=== PATIENT | male | born 1955 | race Caucasian/White ===

== ENCOUNTER 2020-10-19 16:49 | Inpatient (IN) ==
[2020-10-19] MEDS ORDERED: Naloxone 0.4 MG/ML INJ IVP PRN (20:36)
[2020-10-19] MEDS ORDERED: *HR* Heparin 5,000 UNIT/ML VIAL IVP ONE (22:10)
[2020-10-19] MEDS ORDERED: *HR* Heparin 5,000 UNIT/ML VIAL IVP PRN ×2 (22:10)
[2020-10-19] MEDS ORDERED: Heparin 25,000UNIT/250ML 1/2NS 25,000 UNIT/250 ML IV.SOLN IVC SCH (22:15)
[2020-10-19 22:27] LABS: Hemoglobin 13.3 g/dL (12.9-16.9); Mean Corpuscular HGB Conc 33.3 g/dL (31.6-35.5); Mean Corpuscular Hemoglobin 30.9 pg (28.0-33.3); Mean Corpuscular Volume 92.8 fL (83.0-100.0); Mean Platelet Volume 9.9 fL (9.4-12.4); Platelet Count 166 K/mcL (140-400); Red Blood Count 4.31 M/mcL (4.19-5.50); Red Cell Distribution Width 11.8 % (11.5-14.5); White Blood Count 10.8 K/mcL (4.3-11.1)
[2020-10-19 23:09] LABS: Heparin anti-factor XA UFH < 0.04 IU/mL (0.30-0.70); INR 1.1; Prothrombin Time 13.2 Seconds (9.4-12.1)
[2020-10-20] MEDS ORDERED: Perflutren Lipid Microsphere 1.3 ML in 0.9 % Sodium Chloride 8.7 ML IVP PRN (03:13)
[2020-10-20 06:07] LABS: Basophils # 0.1 K/mcL (0.0-0.2); Basophils % 0.4 %; Eosinophils # 0.1 K/mcL (0.0-0.6); Eosinophils % 0.6 %; Hematocrit 40.5 % (37.5-50.1); Hemoglobin 13.6 g/dL (12.9-16.9); Immature Granulocytes % 0.4 % (0-4); Lymphocytes # 2.2 K/mcL (0.6-4.6); Lymphocytes % 15.7 %; Mean Corpuscular HGB Conc 33.6 g/dL (31.6-35.5); Mean Corpuscular Hemoglobin 30.6 pg (28.0-33.3); Mean Corpuscular Volume 91.2 fL (83.0-100.0); Mean Platelet Volume 9.8 fL (9.4-12.4); Monocytes # 1.1 K/mcL (0.0-1.3); Monocytes % 7.8 %; Neutrophils # 10.6 K/mcL (1.6-8.9); Platelet Count 167 K/mcL (140-400); Red Blood Count 4.44 M/mcL (4.19-5.50); Red Cell Distribution Width 11.7 % (11.5-14.5); Segmented Neutrophils % 75.1 %; White Blood Count 14.1 K/mcL (4.3-11.1)
[2020-10-20 06:14] LABS: INR 1.2; Prothrombin Time 13.4 Seconds (9.4-12.1)
[2020-10-20 06:22] LABS: Activated Partial Thrombo Time 72.8 Seconds (26.0-36.0)
[2020-10-20 06:28] LABS: Albumin 3.7 g/dL (3.5-5.7); Albumin/Globulin Ratio 2.1 (1.1-2.2); Bilirubin,Direct 0.2 mg/dL (0.0-0.2); Bilirubin,Indirect 0.7 mg/dL (0.0-1.0); Bilirubin,Total 0.9 mg/dL (0.3-1.0); Globulin 1.8 g/dL (2.4-3.5); Total Protein 5.5 g/dL (6.4-8.9)
[2020-10-20 06:29] LABS: BUN/Creatinine Ratio 13 (6-26); Blood Urea Nitrogen 13 mg/dL (8-23); Calcium 8.8 mg/dL (8.6-10.3); Carbon Dioxide 23 mEq/L (23-29); Chloride 108 mEq/L (98-107); Chol/HDL Ratio 2.9 (0-4.9); Cholesterol 112 mg/dL (< 200); Glucose 105 mg/dL (70-105); HDL Cholesterol 39 mg/dL (40-59); LDL Cholesterol,Calculated 60 mg/dL (< 100); Magnesium 1.8 mg/dL (1.6-2.6); Osmolality,Calculated 286 (280-300); Phosphorous 2.4 mg/dL (2.7-4.5); Potassium 3.8 mEq/L (3.5-5.1); Sodium 138 mEq/L (136-145); Triglycerides 67 mg/dL (< 150); eGFR For African Americans > 60 (> 60); eGFR For Non-African Americans > 60 (> 60)
[2020-10-20] MEDS ORDERED: *HR* Midazolam HCl 2 MG/2 ML VIAL ONE (08:51)
[2020-10-20] MEDS ORDERED: *HR* FentaNYL (PF) 100 MCG/2 ML VIAL ONE (08:52)
[2020-10-20] MEDS ORDERED: 0.9 % Sodium Chloride 1,000 ML ONE ×2 (08:56→09:46)
[2020-10-20] MEDS ORDERED: ISOVUE-370 200 ML INFUS..BTL ONE (09:46)
[2020-10-20] MEDS ORDERED: *HR* Heparin 10,000 UNIT/10 ML VIAL ONE (09:46)
[2020-10-20] MEDS ORDERED: Heparin 1,000 UNITS/500 mL 500 ML ONE (09:46)
[2020-10-20] MEDS ORDERED: Nitroglycerin 1,000 MCG/5 ML VIAL IV ONE (09:46)
[2020-10-20] MEDS ORDERED: Aspirin 81 MG TAB.CHEW PO SCH (10:15)
[2020-10-20] MEDS ORDERED: 0.9 % Sodium Chloride 1,000 ML IVC SCH (10:15)
[2020-10-20] MEDS: Nitroglycerin 1 INCH/GM PACKET TP SCH ×2 (14:12→16:30)
[2020-10-20] MEDS: Chlorhexidine Rinse 15 ML MOUTHWASH MM SCH (20:16)
[2020-10-20 20:46] LABS: Adenovirus Not Detected (Not Detect); Bordetella Pertussis Not Detected (Not Detect); Chlamydophila pneumoniae Not Detected (Not Detect); Coronavirus 229E Not Detected (Not Detect); Coronavirus HKU1 Not Detected (Not Detect); Coronavirus NL63 Not Detected (Not Detect); Coronavirus OC43 Not Detected (Not Detect); Human Metapneumovirus Not Detected (Not Detect); Human Rhinovirus/Enterovirus Not Detected (Not Detect); Influenza A Subtype 2009 H1 Not Detected (Not Detect); Influenza B Not Detected (Not Detect); Mycoplasma pneumoniae Not Detected (Not Detect); Parainfluenza Virus 1 Not Detected (Not Detect); Parainfluenza Virus 2 Not Detected (Not Detect); Parainfluenza Virus 3 Not Detected (Not Detect); Parainfluenza Virus 4 Not Detected (Not Detect); Respiratory Syncytial Virus Not Detected (Not Detect); SARS-CoV-2 Not Detected (Not Detect)
[2020-10-21 04:25] LABS: Hematocrit 41.4 % (37.5-50.1); Hemoglobin 13.8 g/dL (12.9-16.9); Mean Corpuscular HGB Conc 33.3 g/dL (31.6-35.5); Mean Corpuscular Hemoglobin 31.1 pg (28.0-33.3); Mean Corpuscular Volume 93.2 fL (83.0-100.0); Mean Platelet Volume 9.8 fL (9.4-12.4); Platelet Count 150 K/mcL (140-400); Red Blood Count 4.44 M/mcL (4.19-5.50); Red Cell Distribution Width 11.7 % (11.5-14.5); White Blood Count 8.5 K/mcL (4.3-11.1)
[2020-10-21 04:49] LABS: Alanine Aminotransferase 22 Units/L (7-52); Albumin 3.8 g/dL (3.5-5.7); Alkaline Phosphatase 55 Units/L (34-104); Amylase 90 Units/L (29-103); Aspartate Amino Transferase 34 Units/L (13-39); BUN/Creatinine Ratio 15 (6-26); Bilirubin,Total 0.9 mg/dL (0.3-1.0); Blood Urea Nitrogen 16 mg/dL (8-23); Calcium 8.8 mg/dL (8.6-10.3); Carbon Dioxide 26 mEq/L (23-29); Chloride 106 mEq/L (98-107); Globulin 1.9 g/dL (2.4-3.5); Glucose 102 mg/dL (70-105); Lipase 202 Units/L (11-82); Osmolality,Calculated 285 (280-300); Potassium 4.2 mEq/L (3.5-5.1); Sodium 137 mEq/L (136-145); Total Protein 5.7 g/dL (6.4-8.9); eGFR For African Americans > 60 (> 60); eGFR For Non-African Americans > 60 (> 60)
[2020-10-21] MEDS: Chlorhexidine Rinse 15 ML MOUTHWASH MM SCH ×2 (05:59→21:04)
[2020-10-21] MEDS ORDERED: Aspirin 81 MG TAB.CHEW PO ONE (06:00)
[2020-10-21] MEDS ORDERED: NiCARdipine 2.5 MG/10 ML Syringe IVPB ONE (06:32)
[2020-10-21] MEDS ORDERED: *HR* Midazolam HCl 5 MG/5 ML VIAL IVP ONE (06:36)
[2020-10-21] MEDS ORDERED: *HR* FentaNYL (PF) 1,000 MCG/20 ML VIAL ONE (06:36)
[2020-10-21] MEDS ORDERED: *HR* PHENYLEPHRINE 1,000 MCG/10 ML SYRINGE IVP ONE (06:39)
[2020-10-21] MEDS ORDERED: *HR* Rocuronium Bromide 50 MG/5 ML VIAL ONE (06:39)
[2020-10-21] MEDS ORDERED: *HR* Etomidate 20 MG/10 ML AMPUL IVP ONE (06:41)
[2020-10-21] MEDS ORDERED: EPINEPHrine 1 MG/ML VIAL ONE (06:41)
[2020-10-21] MEDS ORDERED: Famotidine 20 MG/2 ML VIAL ONE (06:41)
[2020-10-21] MEDS ORDERED: Tranexamic Acid 1,000 MG/10 ML VIAL ONE ×2 (06:43→09:10)
[2020-10-21] MEDS ORDERED: Protamine Sulfate 250 MG/25 ML VIAL IVP ONE (06:43)
[2020-10-21] MEDS ORDERED: Calcium Gluconate 1,000 MG/10 ML VIAL ONE (06:43)
[2020-10-21] MEDS ORDERED: CeFAZolin Syr 2,000MG/20 ML 2,000 MG/20 ML SYRINGE IVPB ONE (07:00)
[2020-10-21] MEDS ORDERED: Insulin Human Regular 100 UNIT in 0.9 % Sodium Chloride 100 ML IV PRN (07:45)
[2020-10-21] MEDS ORDERED: Heparin 15,000 UNIT in 0.9 % Sodium Chloride 500 ML IV ONE (07:45)
[2020-10-21] MEDS ORDERED: Norepinephrine 4 MG in 0.9 % Sodium Chloride 250 ML IVC PRN (07:45)
[2020-10-21] MEDS ORDERED: Dextrose 50 % in Water (Vial) 30 ML, Sodium Bicarbonate 20 MEQ, Potassium Chloride 15 M... TH ONE (07:45)
[2020-10-21] MEDS ORDERED: Dextrose 50 % in Water (Vial) 30 ML, Sodium Bicarbonate 20 MEQ, Lidocaine 1% 5 ML, Insu... TH ONE ×3 (07:45)
[2020-10-21 08:06] LABS: Estimated Average Glucose 117 mg/dl; Hemoglobin A1C 5.7 %
[2020-10-21] MEDS ORDERED: Lidocaine Jelly 6ml 1 APPL/6 ML JEL.PF.APP ONE (08:14)
[2020-10-21 08:29] LABS: ABG Base Excess 1 mEq/L (-2 to 3); ABG Chloride 103 mEq/L (98-107); ABG Glucose 109 mg/dL (60-95); ABG HCO3 27 mEq/L (21-27); ABG Ionized Calcium 1.14 mmol/L (1.15-1.35); ABG Oxygen Saturation 100 % (95-98); ABG PCO2 51 mmHg (35-45); ABG PH 7.34 pH Units (7.32-7.45); ABG PO2 326 mmHg (85-104); ABG TCO2 29 mEq/L (20-26)
[2020-10-21 09:30] LABS: ABG Base Excess 0 mEq/L (-2 to 3); ABG Chloride 102 mEq/L (98-107); ABG Glucose 128 mg/dL (60-95); ABG HCO3 25 mEq/L (21-27); ABG Ionized Calcium 1.19 mmol/L (1.15-1.35); ABG Oxygen Saturation 100 % (95-98); ABG PCO2 41 mmHg (35-45); ABG PO2 252 mmHg (85-104); ABG TCO2 26 mEq/L (20-26)
[2020-10-21 09:49] LABS: ABG Base Excess 0 mEq/L (-2 to 3); ABG Chloride 97 mEq/L (98-107); ABG Glucose 159 mg/dL (60-95); ABG HCO3 24 mEq/L (21-27); ABG Ionized Calcium 0.89 mmol/L (1.15-1.35); ABG PCO2 36 mmHg (35-45); ABG PH 7.44 pH Units (7.32-7.45); ABG PO2 > 630 mmHg (85-104); ABG TCO2 26 mEq/L (20-26)
[2020-10-21 10:08] LABS: ABG Base Excess 0 mEq/L (-2 to 3); ABG Chloride 99 mEq/L (98-107); ABG Glucose 124 mg/dL (60-95); ABG HCO3 24 mEq/L (21-27); ABG Ionized Calcium 1.01 mmol/L (1.15-1.35); ABG Oxygen Saturation 100 % (95-98); ABG PCO2 37 mmHg (35-45); ABG PH 7.43 pH Units (7.32-7.45); ABG PO2 615 mmHg (85-104); ABG TCO2 25 mEq/L (20-26)
[2020-10-21] MEDS ORDERED: *HR* Phenylephrine 10 MG/ML VIAL IVC ONE (10:11)
[2020-10-21] MEDS ORDERED: *HR* Magnesium Sulfate 2 GM/50 ML PIGGYBACK IVPB ONE (10:11)
[2020-10-21] MEDS ORDERED: Tranexamic Acid 1,000 MG/10 ML VIAL IR ONE (10:11)
[2020-10-21] MEDS ORDERED: *HR* Heparin 10,000 UNIT/10 ML VIAL IR ONE (10:11)
[2020-10-21] MEDS ORDERED: Albumin Human 25% 25 GM/100 ML IV.SOLN IVPB ONE (10:11)
[2020-10-21] MEDS ORDERED: Lidocaine 2% Syringe 100 MG/5 ML IVP ONE (10:11)
[2020-10-21] MEDS ORDERED: Mannitol 25% vial 12.5 GM/50 ML VIAL IVPB ONE (10:11)
[2020-10-21] MEDS ORDERED: Protamine Sulfate 50 MG/5 ML VIAL IVP ONE (10:37)
[2020-10-21 10:39] LABS: ABG Base Excess 0 mEq/L (-2 to 3); ABG Chloride 100 mEq/L (98-107); ABG Glucose 86 mg/dL (60-95); ABG HCO3 25 mEq/L (21-27); ABG Ionized Calcium 1.61 mmol/L (1.15-1.35); ABG Oxygen Saturation 100 % (95-98); ABG PCO2 40 mmHg (35-45); ABG PO2 163 mmHg (85-104); ABG TCO2 26 mEq/L (20-26)
[2020-10-21] MEDS ORDERED: Potassium Chloride 40 MEQ/200 ML BAG IVPB PRN (10:54)
[2020-10-21] MEDS ORDERED: *HR* Dextrose 50 % in Water (Vial) 50 ML VIAL IVP PRN (10:54)
[2020-10-21] MEDS ORDERED: Insulin Regular, Human 100 UNIT/ML IV PRN (10:54)
[2020-10-21] MEDS ORDERED: Acetaminophen 650 MG RECTAL SUPP RC PRN (10:56)
[2020-10-21] MEDS ORDERED: Ondansetron 4 MG/2 ML VIAL IVP PRN (10:56)
[2020-10-21] MEDS ORDERED: Acetaminophen 325 MG TABLET PO PRN (10:56)
[2020-10-21] MEDS ORDERED: Sennosides 8.6 MG TABLET PO PRN (10:58)
[2020-10-21] MEDS ORDERED: Calcium Gluconate 1gm/50mL 1 GM/50 ML BAG IVPB PRN (10:58)
[2020-10-21] MEDS ORDERED: *HR* Dextrose 50 % in Water (Vial) 50 ML VIAL ONE (11:36)
[2020-10-21 11:40] LABS: ABG Base Excess 1 mEq/L (-2 to 3); ABG HCO3 26 mEq/L (21-27); ABG Oxygen Saturation 100 % (95-98); ABG PCO2 45 mmHg (35-45); ABG PH 7.37 pH Units (7.32-7.45); ABG PO2 189 mmHg (85-104); ABG TCO2 28 mEq/L (20-26); Blood Gas Modality AF; Blood Gas VT 600 cc
[2020-10-21] MEDS: niCARdipine 20 MG/200 ML MLS IVC SCH ×5 (11:45→23:09)
[2020-10-21] MEDS: 0.9 % Sodium Chloride w KCl 20 MEQ/1,000 ML MLS IVC SCH (11:55)
[2020-10-21] MEDS: Metoclopramide 10 MG/2 ML VIAL IVP SCH ×3 (11:55→23:09)
[2020-10-21 11:56] LABS: Basophils % 0.4 %; Immature Granulocytes % 0.4 % (0-4)
[2020-10-21 11:58] LABS: Eosinophils # 0.1 K/mcL (0.0-0.6); Eosinophils % 1.6 %; Hematocrit 32.5 % (37.5-50.1); Hemoglobin 10.8 g/dL (12.9-16.9); Immature Platelets 2.6 % (1.1-6.1); Lymphocytes # 1.2 K/mcL (0.6-4.6); Lymphocytes % 16.9 %; Mean Corpuscular HGB Conc 33.2 g/dL (31.6-35.5); Mean Corpuscular Hemoglobin 30.7 pg (28.0-33.3); Mean Corpuscular Volume 92.3 fL (83.0-100.0); Mean Platelet Volume 9.6 fL (9.4-12.4); Monocytes # 0.1 K/mcL (0.0-1.3); Neutrophils # 5.8 K/mcL (1.6-8.9); Platelet Count 75 K/mcL (140-400); Red Blood Count 3.52 M/mcL (4.19-5.50); Red Cell Distribution Width 11.6 % (11.5-14.5); Segmented Neutrophils % 79.7 %; White Blood Count 7.3 K/mcL (4.3-11.1)
[2020-10-21 12:03] LABS: INR 1.5; Prothrombin Time 17.6 Seconds (9.4-12.1)
[2020-10-21 12:06] LABS: Activated Partial Thrombo Time 32.3 Seconds (26.0-36.0)
[2020-10-21] MEDS: Pantoprazole 40 MG VIAL IVP SCH (12:08)
[2020-10-21 12:11] LABS: BUN/Creatinine Ratio 14 (6-26); Blood Urea Nitrogen 14 mg/dL (8-23); Carbon Dioxide 28 mEq/L (23-29); Chloride 108 mEq/L (98-107); Glucose 63 mg/dL (70-105); Magnesium 2.7 mg/dL (1.6-2.6); Osmolality,Calculated 285 (280-300); Potassium 3.8 mEq/L (3.5-5.1); Sodium 138 mEq/L (136-145); eGFR For African Americans > 60 (> 60); eGFR For Non-African Americans > 60 (> 60)
[2020-10-21] MEDS: Norepinephrine 4 MG/254 ML IV.SOLN IVC SCH ×5 (12:30→21:52)
[2020-10-21] MEDS: Albumin Human 5% 12.5 GM/250 ML IV.SOLN IVPB PRN ×4 (12:30→15:07)
[2020-10-21] MEDS: CeFAZolin 2 GM/120 ML BAG IVPB SCH ×2 (13:02→21:04)
[2020-10-21] MEDS: *HR* FentaNYL (PF) 100 MCG/2 ML VIAL IVP PRN ×3 (14:30→21:51)
[2020-10-21 15:20] LABS: Hematocrit 26.6 % (37.5-50.1)
[2020-10-21 15:21] LABS: Hemoglobin 8.7 g/dL (12.9-16.9)
[2020-10-21 16:00] LABS: ABG Base Excess -3 mEq/L (-2 to 3); ABG HCO3 22 mEq/L (21-27); ABG Oxygen Saturation 98 % (95-98); ABG PCO2 35 mmHg (35-45); ABG PO2 97 mmHg (85-104); ABG TCO2 23 mEq/L (20-26); Blood Gas Modality AF; Blood Gas VT 600 cc
[2020-10-21] MEDS ORDERED: CeFAZolin 2 GM/120 ML BAG IVPB SCH (16:00)
[2020-10-21] MEDS ORDERED: 0.9 % Sodium Chloride 250 ML ONE ×3 (16:05→17:39)
[2020-10-21] MEDS: Vasopressin 40 UNIT in D5% in Water 100 ML IVC SCH (17:03)
[2020-10-21] MEDS: Insulin Human Regular 100 UNIT in 0.9 % Sodium Chloride 100 ML IVC SCH (19:26)
[2020-10-21] MEDS: Dexmedetomidine HCl 400 MCG/100 ML MLS IVC SCH (19:47)
[2020-10-21 20:14] LABS: ABG Base Excess 0 mEq/L (-2 to 3); ABG HCO3 24 mEq/L (21-27); ABG Oxygen Saturation 99 % (95-98); ABG PCO2 38 mmHg (35-45); ABG PH 7.42 pH Units (7.32-7.45); ABG PO2 132 mmHg (85-104); ABG TCO2 26 mEq/L (20-26); Blood Gas Modality AF; Blood Gas VT 600 cc
[2020-10-21] MEDS: *HR* OxyCODONE/APAP 5/325 TABLET PO PRN (23:08)
[2020-10-22 00:05] LABS: ABG Base Excess -1 mEq/L (-2 to 3); ABG HCO3 24 mEq/L (21-27); ABG Oxygen Saturation 98 % (95-98); ABG PCO2 36 mmHg (35-45); ABG PH 7.43 pH Units (7.32-7.45); ABG PO2 106 mmHg (85-104); ABG TCO2 25 mEq/L (20-26); Blood Gas Modality AF; Blood Gas VT 600 cc
[2020-10-22] MEDS: *HR* FentaNYL (PF) 100 MCG/2 ML VIAL IVP PRN ×2 (01:05→03:32)
[2020-10-22] MEDS: Norepinephrine 4 MG/254 ML IV.SOLN IVC SCH ×2 (02:14→11:54)
[2020-10-22] MEDS: niCARdipine 20 MG/200 ML MLS IVC SCH ×5 (02:51→21:06)
[2020-10-22 04:09] LABS: ABG Base Excess -1 mEq/L (-2 to 3); ABG HCO3 24 mEq/L (21-27); ABG Oxygen Saturation 98 % (95-98); ABG PCO2 40 mmHg (35-45); ABG PH 7.39 pH Units (7.32-7.45); ABG PO2 103 mmHg (85-104); ABG TCO2 25 mEq/L (20-26); Blood Gas Modality AF; Blood Gas VT 600 cc
[2020-10-22 04:13] LABS: Basophils % 0.2 %; Eosinophils % 0.1 %; Hematocrit 25.5 % (37.5-50.1); Hemoglobin 8.6 g/dL (12.9-16.9); Immature Granulocytes % 0.4 % (0-4); Immature Platelets 5.1 % (1.1-6.1); Lymphocytes # 1.1 K/mcL (0.6-4.6); Lymphocytes % 8.5 %; Mean Corpuscular HGB Conc 33.7 g/dL (31.6-35.5); Mean Corpuscular Hemoglobin 30.1 pg (28.0-33.3); Mean Corpuscular Volume 89.2 fL (83.0-100.0); Mean Platelet Volume 10.3 fL (9.4-12.4); Monocytes # 1.7 K/mcL (0.0-1.3); Monocytes % 12.8 %; Neutrophils # 10.1 K/mcL (1.6-8.9); Red Blood Count 2.86 M/mcL (4.19-5.50); Red Cell Distribution Width 14.4 % (11.5-14.5)
[2020-10-22 04:14] LABS: Platelet Count 69 K/mcL (140-400)
[2020-10-22 04:18] LABS: INR 1.4; Prothrombin Time 15.8 Seconds (9.4-12.1)
[2020-10-22 04:20] LABS: Activated Partial Thrombo Time 28.7 Seconds (26.0-36.0)
[2020-10-22 04:26] LABS: Platelet Estimate Decreased (Normal)
[2020-10-22 04:31] LABS: Albumin 3.4 g/dL (3.5-5.7); Albumin/Globulin Ratio 2.6 (1.1-2.2); Bilirubin,Total 1.5 mg/dL (0.3-1.0); Calcium 7.8 mg/dL (8.6-10.3); Globulin 1.3 g/dL (2.4-3.5); Potassium 4.6 mEq/L (3.5-5.1); Total Protein 4.7 g/dL (6.4-8.9)
[2020-10-22] MEDS: *HR* OxyCODONE/APAP 5/325 TABLET PO PRN ×5 (05:07→21:04)
[2020-10-22] MEDS: Metoclopramide 10 MG/2 ML VIAL IVP SCH ×4 (05:08→23:37)
[2020-10-22] MEDS ORDERED: 0.9 % Sodium Chloride 1,000 ML ONE (06:44)
[2020-10-22] MEDS ORDERED: 0.9 % Sodium Chloride 250 ML ONE (06:45)
[2020-10-22] MEDS: 0.9 % Sodium Chloride w KCl 20 MEQ/1,000 ML MLS IVC SCH (06:50)
[2020-10-22] MEDS: Vasopressin 40 UNIT in D5% in Water 100 ML IVC SCH (07:21)
[2020-10-22] MEDS: 0.9 % Sodium Chloride 1,000 ML IVC SCH (07:48)
[2020-10-22] MEDS: Chlorhexidine Rinse 15 ML MOUTHWASH MM SCH ×2 (08:19→21:05)
[2020-10-22] MEDS: Furosemide 20 MG/2 ML VIAL IVP SCH ×2 (08:19→21:05)
[2020-10-22] MEDS: Aspirin Enteric Coated 81 MG Tablet PO SCH (08:19)
[2020-10-22] MEDS: Pantoprazole 40 MG VIAL IVP SCH (08:19)
[2020-10-22 08:31] LABS: ABG Base Excess -1 mEq/L (-2 to 3); ABG HCO3 25 mEq/L (21-27); ABG Oxygen Saturation 97 % (95-98); ABG PCO2 43 mmHg (35-45); ABG PH 7.37 pH Units (7.32-7.45); ABG PO2 90 mmHg (85-104); ABG TCO2 26 mEq/L (20-26); Blood Gas Modality CPAP/PS
[2020-10-22] MEDS: Insulin Human Regular 100 UNIT in 0.9 % Sodium Chloride 100 ML IVC SCH (10:54)
[2020-10-22] MEDS: Dexmedetomidine HCl 400 MCG/100 ML MLS IVC SCH (14:22)
[2020-10-22] MEDS: Insulin LISPRO 300 UNITS/3 ML VIAL SUBQ SCH ×2 (15:31→21:05)
[2020-10-22] MEDS: Ipratropium 1 PUFF INHALER IH SCH (20:02)
[2020-10-23] MEDS: Ipratropium 1 PUFF INHALER IH SCH ×7 (00:03→23:20)
[2020-10-23] MEDS: 0.9 % Sodium Chloride 1,000 ML IVC SCH ×2 (03:59→22:54)
[2020-10-23] MEDS: niCARdipine 20 MG/200 ML MLS IVC SCH ×6 (05:07→22:53)
[2020-10-23] MEDS: *HR* OxyCODONE/APAP 5/325 TABLET PO PRN ×2 (05:07→17:47)
[2020-10-23] MEDS: Metoclopramide 10 MG/2 ML VIAL IVP SCH ×3 (05:07→17:48)
[2020-10-23 05:23] LABS: Hematocrit 28.6 % (37.5-50.1); Hemoglobin 9.5 g/dL (12.9-16.9); Mean Corpuscular HGB Conc 33.2 g/dL (31.6-35.5); Mean Corpuscular Hemoglobin 29.8 pg (28.0-33.3); Mean Corpuscular Volume 89.7 fL (83.0-100.0); Mean Platelet Volume 11.3 fL (9.4-12.4); Red Blood Count 3.19 M/mcL (4.19-5.50); Red Cell Distribution Width 14.6 % (11.5-14.5); White Blood Count 12.7 K/mcL (4.3-11.1)
[2020-10-23 05:24] LABS: Platelet Count 69 K/mcL (140-400)
[2020-10-23 05:40] LABS: Alanine Aminotransferase 13 Units/L (7-52); Albumin 3.4 g/dL (3.5-5.7); Albumin/Globulin Ratio 1.8 (1.1-2.2); Alkaline Phosphatase 38 Units/L (34-104); Aspartate Amino Transferase 35 Units/L (13-39); BUN/Creatinine Ratio 17 (6-26); Bilirubin,Total 1.7 mg/dL (0.3-1.0); Blood Urea Nitrogen 19 mg/dL (8-23); Calcium 8.2 mg/dL (8.6-10.3); Carbon Dioxide 27 mEq/L (23-29); Chloride 106 mEq/L (98-107); Globulin 1.9 g/dL (2.4-3.5); Glucose 134 mg/dL (70-105); Osmolality,Calculated 288 (280-300); Potassium 3.7 mEq/L (3.5-5.1); Sodium 137 mEq/L (136-145); Total Protein 5.3 g/dL (6.4-8.9); eGFR For African Americans > 60 (> 60); eGFR For Non-African Americans > 60 (> 60)
[2020-10-23 05:41] LABS: Albumin 3.4 g/dL (3.5-5.7); Albumin/Globulin Ratio 1.8 (1.1-2.2); Bilirubin,Direct 0.6 mg/dL (0.0-0.2); Bilirubin,Indirect 1.1 mg/dL (0.0-1.0); Bilirubin,Total 1.7 mg/dL (0.3-1.0); Globulin 1.9 g/dL (2.4-3.5); Total Protein 5.3 g/dL (6.4-8.9)
[2020-10-23 05:42] LABS: Basophils % 0.2 %; Eosinophils % 0.2 %; Lymphocytes # 0.6 K/mcL (0.6-4.6); Lymphocytes % 4.5 %; Segmented Neutrophils % 86.4 %
[2020-10-23 05:44] LABS: Immature Granulocytes % 0.7 % (0-4); Immature Platelets 7.3 % (1.1-6.1)
[2020-10-23] MEDS: Insulin LISPRO 300 UNITS/3 ML VIAL SUBQ SCH ×4 (08:38→20:07)
[2020-10-23] MEDS: Aspirin Enteric Coated 81 MG Tablet PO SCH (08:38)
[2020-10-23] MEDS: Chlorhexidine Rinse 15 ML MOUTHWASH MM SCH ×2 (08:38→20:01)
[2020-10-23] MEDS: Pantoprazole 40 MG VIAL IVP SCH (08:39)
[2020-10-23] MEDS: Furosemide 20 MG/2 ML VIAL IVP SCH ×2 (08:39→20:02)
[2020-10-23] MEDS: Dexmedetomidine HCl 400 MCG/100 ML MLS IVC SCH (19:56)
[2020-10-23] MEDS: Vasopressin 40 UNIT in D5% in Water 100 ML IVC SCH (19:57)
[2020-10-24] MEDS: niCARdipine 20 MG/200 ML MLS IVC SCH ×7 (00:02→23:05)
[2020-10-24] MEDS: Metoclopramide 10 MG/2 ML VIAL IVP SCH ×3 (00:02→11:32)
[2020-10-24] MEDS: Dexmedetomidine HCl 400 MCG/100 ML MLS IVC SCH ×2 (00:47→23:05)
[2020-10-24] MEDS: Ipratropium 1 PUFF INHALER IH SCH ×6 (03:30→23:39)
[2020-10-24 04:39] LABS: Basophils % 0.1 %; Eosinophils % 0.3 %; Mean Platelet Volume 11.2 fL (9.4-12.4)
[2020-10-24 04:41] LABS: Eosinophils # 0.1 K/mcL (0.0-0.6); Hematocrit 29.8 % (37.5-50.1); Hemoglobin 9.9 g/dL (12.9-16.9); Immature Granulocytes % 1.1 % (0-4); Immature Platelets 5.9 % (1.1-6.1); Lymphocytes # 0.9 K/mcL (0.6-4.6); Lymphocytes % 5.7 %; Mean Corpuscular HGB Conc 33.2 g/dL (31.6-35.5); Mean Corpuscular Hemoglobin 29.6 pg (28.0-33.3); Monocytes # 1.2 K/mcL (0.0-1.3); Monocytes % 7.6 %; Red Blood Count 3.35 M/mcL (4.19-5.50); Segmented Neutrophils % 85.2 %; White Blood Count 15.9 K/mcL (4.3-11.1)
[2020-10-24 04:42] LABS: Neutrophils # 13.6 K/mcL (1.6-8.9); Platelet Count 97 K/mcL (140-400)
[2020-10-24 04:56] LABS: Alanine Aminotransferase 19 Units/L (7-52); Albumin 3.3 g/dL (3.5-5.7); Albumin/Globulin Ratio 1.5 (1.1-2.2); Alkaline Phosphatase 46 Units/L (34-104); Aspartate Amino Transferase 34 Units/L (13-39); BUN/Creatinine Ratio 19 (6-26); Bilirubin,Total 1.4 mg/dL (0.3-1.0); Blood Urea Nitrogen 20 mg/dL (8-23); Calcium 8.4 mg/dL (8.6-10.3); Carbon Dioxide 29 mEq/L (23-29); Chloride 102 mEq/L (98-107); Globulin 2.2 g/dL (2.4-3.5); Glucose 118 mg/dL (70-105); Osmolality,Calculated 288 (280-300); Potassium 3.5 mEq/L (3.5-5.1); Sodium 137 mEq/L (136-145); Total Protein 5.5 g/dL (6.4-8.9); eGFR For African Americans > 60 (> 60); eGFR For Non-African Americans > 60 (> 60)
[2020-10-24] MEDS: Insulin LISPRO 300 UNITS/3 ML VIAL SUBQ SCH ×4 (07:45→19:57)
[2020-10-24] MEDS: *HR* OxyCODONE/APAP 5/325 TABLET PO PRN (08:33)
[2020-10-24] MEDS: Aspirin Enteric Coated 81 MG Tablet PO SCH (08:33)
[2020-10-24] MEDS: Pantoprazole 40 MG VIAL IVP SCH (08:39)
[2020-10-24] MEDS: Chlorhexidine Rinse 15 ML MOUTHWASH MM SCH ×2 (08:39→19:56)
[2020-10-24] MEDS: Furosemide 20 MG/2 ML VIAL IVP SCH ×2 (08:39→19:57)
[2020-10-24] MEDS: *HR* Heparin 5,000 UNIT/ML VIAL SQ SCH ×2 (10:13→19:38)
[2020-10-24] MEDS: Vasopressin 40 UNIT in D5% in Water 100 ML IVC SCH (11:27)
[2020-10-24] MEDS: 0.9 % Sodium Chloride 1,000 ML IVC SCH (19:39)
[2020-10-25] MEDS: Ipratropium 1 PUFF INHALER IH SCH ×5 (03:32→19:36)
[2020-10-25 04:35] LABS: Basophils % 0.2 %; Eosinophils # 0.2 K/mcL (0.0-0.6); Eosinophils % 1.2 %; Hematocrit 32.2 % (37.5-50.1); Hemoglobin 10.4 g/dL (12.9-16.9); Lymphocytes # 1.6 K/mcL (0.6-4.6); Lymphocytes % 12.2 %; Mean Corpuscular HGB Conc 32.3 g/dL (31.6-35.5); Mean Corpuscular Volume 89.7 fL (83.0-100.0); Mean Platelet Volume 10.8 fL (9.4-12.4); Monocytes # 1.5 K/mcL (0.0-1.3); Neutrophils # 9.9 K/mcL (1.6-8.9); Platelet Count 162 K/mcL (140-400); Red Blood Count 3.59 M/mcL (4.19-5.50); Red Cell Distribution Width 13.9 % (11.5-14.5); Segmented Neutrophils % 74.4 %; White Blood Count 13.4 K/mcL (4.3-11.1)
[2020-10-25 04:58] LABS: Alanine Aminotransferase 19 Units/L (7-52); Albumin 3.4 g/dL (3.5-5.7); Albumin/Globulin Ratio 1.5 (1.1-2.2); Alkaline Phosphatase 47 Units/L (34-104); Aspartate Amino Transferase 29 Units/L (13-39); BUN/Creatinine Ratio 22 (6-26); Bilirubin,Total 1.3 mg/dL (0.3-1.0); Blood Urea Nitrogen 26 mg/dL (8-23); Calcium 8.7 mg/dL (8.6-10.3); Carbon Dioxide 29 mEq/L (23-29); Chloride 101 mEq/L (98-107); Globulin 2.3 g/dL (2.4-3.5); Glucose 110 mg/dL (70-105); Osmolality,Calculated 289 (280-300); Potassium 3.6 mEq/L (3.5-5.1); Sodium 137 mEq/L (136-145); Total Protein 5.7 g/dL (6.4-8.9); eGFR For African Americans > 60 (> 60); eGFR For Non-African Americans > 60 (> 60)
[2020-10-25] MEDS: *HR* Heparin 5,000 UNIT/ML VIAL SQ SCH ×2 (05:08→17:23)
[2020-10-25] MEDS: Chlorhexidine Rinse 15 ML MOUTHWASH MM SCH ×2 (08:08→19:53)
[2020-10-25] MEDS: Aspirin Enteric Coated 81 MG Tablet PO SCH (08:08)
[2020-10-25] MEDS: niCARdipine 20 MG/200 ML MLS IVC SCH ×2 (11:03→11:05)
[2020-10-25] MEDS: Insulin LISPRO 300 UNITS/3 ML VIAL SUBQ SCH ×3 (11:04→19:48)
[2020-10-25] MEDS: Norepinephrine 4 MG/254 ML IV.SOLN IVC SCH (11:04)
[2020-10-25] MEDS: Vasopressin 40 UNIT in D5% in Water 100 ML IVC SCH (11:04)
[2020-10-25] MEDS ORDERED: Naloxone 0.4 MG/ML INJ IVP PRN (11:54)
[2020-10-25] MEDS ORDERED: *HR* Dextrose 50 % in Water (Vial) 50 ML VIAL IVP PRN (11:54)
[2020-10-25] MEDS ORDERED: Sennosides 8.6 MG TABLET PO PRN (11:54)
[2020-10-25] MEDS ORDERED: Ondansetron 4 MG/2 ML VIAL IVP PRN (11:54)
[2020-10-25] MEDS ORDERED: Acetaminophen 650 MG RECTAL SUPP RC PRN (11:54)
[2020-10-26] MEDS: Ipratropium 1 PUFF INHALER IH SCH ×7 (00:06→23:58)
[2020-10-26] MEDS: *HR* Heparin 5,000 UNIT/ML VIAL SQ SCH ×2 (04:54→17:29)
[2020-10-26] MEDS: Insulin LISPRO 300 UNITS/3 ML VIAL SUBQ SCH ×4 (07:33→20:32)
[2020-10-26] MEDS: Chlorhexidine Rinse 15 ML MOUTHWASH MM SCH ×2 (09:00→20:32)
[2020-10-26] MEDS: Aspirin Enteric Coated 81 MG Tablet PO SCH (09:00)
[2020-10-27 02:16] LABS: Basophils # 0.1 K/mcL (0.0-0.2); Basophils % 0.4 %; Eosinophils # 0.3 K/mcL (0.0-0.6); Eosinophils % 2.2 %; Hematocrit 30.4 % (37.5-50.1); Immature Granulocytes % 3.4 % (0-4); Lymphocytes # 1.7 K/mcL (0.6-4.6); Lymphocytes % 13.6 %; Mean Corpuscular HGB Conc 32.9 g/dL (31.6-35.5); Mean Corpuscular Hemoglobin 29.9 pg (28.0-33.3); Mean Corpuscular Volume 90.7 fL (83.0-100.0); Monocytes # 1.6 K/mcL (0.0-1.3); Monocytes % 12.9 %; Neutrophils # 8.2 K/mcL (1.6-8.9); Platelet Count 236 K/mcL (140-400); Red Blood Count 3.35 M/mcL (4.19-5.50); Segmented Neutrophils % 67.5 %; White Blood Count 12.2 K/mcL (4.3-11.1)
[2020-10-27 02:29] LABS: BUN/Creatinine Ratio 24 (6-26); Blood Urea Nitrogen 23 mg/dL (8-23); Calcium 8.2 mg/dL (8.6-10.3); Carbon Dioxide 29 mEq/L (23-29); Chloride 103 mEq/L (98-107); Glucose 106 mg/dL (70-105); Osmolality,Calculated 294 (280-300); Potassium 2.9 mEq/L (3.5-5.1); Sodium 140 mEq/L (136-145); eGFR For African Americans > 60 (> 60); eGFR For Non-African Americans > 60 (> 60)
[2020-10-27] MEDS: Ipratropium 1 PUFF INHALER IH SCH ×6 (03:59→23:41)
[2020-10-27] MEDS: *HR* Heparin 5,000 UNIT/ML VIAL SQ SCH ×2 (06:33→18:32)
[2020-10-27] MEDS: Insulin LISPRO 300 UNITS/3 ML VIAL SUBQ SCH ×4 (08:02→21:02)
[2020-10-27] MEDS: Aspirin Enteric Coated 81 MG Tablet PO SCH (08:49)
[2020-10-27] MEDS: Chlorhexidine Rinse 15 ML MOUTHWASH MM SCH ×3 (08:50→21:00)
[2020-10-27] MEDS: Potassium Chloride Elixir 20 MEQ/15 ML UDC PO SCH ×2 (12:54→21:00)
[2020-10-28 01:45] LABS: BUN/Creatinine Ratio 22 (6-26); Blood Urea Nitrogen 19 mg/dL (8-23); Carbon Dioxide 28 mEq/L (23-29); Chloride 101 mEq/L (98-107); Glucose 104 mg/dL (70-105); Osmolality,Calculated 289 (280-300); Potassium 2.9 mEq/L (3.5-5.1); Sodium 138 mEq/L (136-145); eGFR For African Americans > 60 (> 60); eGFR For Non-African Americans > 60 (> 60)
[2020-10-28] MEDS: Ipratropium 1 PUFF INHALER IH SCH ×6 (03:53→22:38)
[2020-10-28] MEDS: *HR* Heparin 5,000 UNIT/ML VIAL SQ SCH ×2 (05:27→17:28)
[2020-10-28] MEDS: Aspirin Enteric Coated 81 MG Tablet PO SCH (08:01)
[2020-10-28] MEDS: Chlorhexidine Rinse 15 ML MOUTHWASH MM SCH ×2 (08:06→20:46)
[2020-10-28] MEDS: Insulin LISPRO 300 UNITS/3 ML VIAL SUBQ SCH ×4 (08:27→20:16)
[2020-10-29 01:12] LABS: BUN/Creatinine Ratio 19 (6-26); Blood Urea Nitrogen 16 mg/dL (8-23); Calcium 7.9 mg/dL (8.6-10.3); Carbon Dioxide 29 mEq/L (23-29); Chloride 102 mEq/L (98-107); Glucose 110 mg/dL (70-105); Osmolality,Calculated 286 (280-300); Potassium 2.9 mEq/L (3.5-5.1); Sodium 137 mEq/L (136-145); eGFR For African Americans > 60 (> 60); eGFR For Non-African Americans > 60 (> 60)
[2020-10-29] MEDS: Ipratropium 1 PUFF INHALER IH SCH ×6 (03:43→23:33)
[2020-10-29] MEDS: *HR* Heparin 5,000 UNIT/ML VIAL SQ SCH ×2 (05:12→17:20)
[2020-10-29] MEDS: Insulin LISPRO 300 UNITS/3 ML VIAL SUBQ SCH ×4 (07:51→20:02)
[2020-10-29] MEDS: Chlorhexidine Rinse 15 ML MOUTHWASH MM SCH ×2 (08:05→20:02)
[2020-10-29] MEDS: Aspirin Enteric Coated 81 MG Tablet PO SCH (08:05)
[2020-10-29] MEDS ORDERED: Potassium Chloride Elixir 20 MEQ/15 ML UDC PO ONE (09:14)
[2020-10-29] MEDS: Potassium Chloride 40 MEQ, Lidocaine 1% 2 ML in 0.9 % Sodium Chloride 500 ML IVPB SCH ×2 (09:50→17:20)
[2020-10-30 01:24] LABS: Basophils % 0.4 %; Eosinophils # 0.3 K/mcL (0.0-0.6); Eosinophils % 2.5 %; Hematocrit 30.6 % (37.5-50.1); Hemoglobin 9.9 g/dL (12.9-16.9); Immature Granulocytes % 1.6 % (0-4); Lymphocytes # 1.6 K/mcL (0.6-4.6); Lymphocytes % 14.3 %; Mean Corpuscular HGB Conc 32.4 g/dL (31.6-35.5); Mean Corpuscular Hemoglobin 29.8 pg (28.0-33.3); Mean Corpuscular Volume 92.2 fL (83.0-100.0); Mean Platelet Volume 9.7 fL (9.4-12.4); Monocytes % 8.7 %; Neutrophils # 8.2 K/mcL (1.6-8.9); Platelet Count 295 K/mcL (140-400); Red Blood Count 3.32 M/mcL (4.19-5.50); Red Cell Distribution Width 14.5 % (11.5-14.5); Segmented Neutrophils % 72.5 %; White Blood Count 11.3 K/mcL (4.3-11.1)
[2020-10-30 01:48] LABS: BUN/Creatinine Ratio 15 (6-26); Blood Urea Nitrogen 13 mg/dL (8-23); Calcium 7.9 mg/dL (8.6-10.3); Carbon Dioxide 24 mEq/L (23-29); Chloride 108 mEq/L (98-107); Glucose 106 mg/dL (70-105); Osmolality,Calculated 289 (280-300); Potassium 3.9 mEq/L (3.5-5.1); Sodium 139 mEq/L (136-145); eGFR For African Americans > 60 (> 60); eGFR For Non-African Americans > 60 (> 60)
[2020-10-30] MEDS: Ipratropium 1 PUFF INHALER IH SCH ×4 (03:47→15:05)
[2020-10-30] MEDS: *HR* Heparin 5,000 UNIT/ML VIAL SQ SCH (05:59)
[2020-10-30 07:37] VITALS: BP 115/68
[2020-10-30] MEDS: Aspirin Enteric Coated 81 MG Tablet PO SCH (08:54)
[2020-10-30] MEDS: Insulin LISPRO 300 UNITS/3 ML VIAL SUBQ SCH (08:54)
[2020-10-30] MEDS: Chlorhexidine Rinse 15 ML MOUTHWASH MM SCH (08:54)
== END 2020-10-30 17:35 | disposition home or self-care (01) | DRG 234 ==
LOC: 3BNU → SUATTDRO 18:27 → ICNU 10-21 07:37 → 2NNU 10-25 14:53
PROVIDERS: ADMIT Internal Medicine; ATTEND Registered Nurse